=== PATIENT | male | born 1950 | race Two or more races ===

== ENCOUNTER 2016-12-10 13:06 | Emergency (ER) | payer OTHER ==
[~2016-12-10] VITALS: Ht 180.3 cm; Wt 87.1 kg
[2016-12-10] MEDS ORDERED: Norco 5mg/325mg tab ORAL ONE (13:30)
[2016-12-10] MEDS ORDERED: NORCO 5-325 TA1 EAC1 ORAL (14:00)
[2016-12-10] MEDS ORDERED: IBUPROFEN600 MG ORAL (14:00)
--- NOTE | 2016-12-10 14:05 | Diagnostic Imaging Report ---
Indication: Pain Findings: 3 views of the left shoulder were obtained. There is an acromioclavicular separation with slightly high riding clavicle with respect to the acromion and increased CC distance. Findings consistent with a grade 3 a.c. disruption. The glenohumeral joint is normal. There is no evidence of fracture. Impression: A.c. separation acuity indeterminate
[2016-12-10 14:30] VITALS: BP 129/73
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
[2016-12-10 14:33] VITALS: BP 127/66
[2016-12-10] MEDS ORDERED: Hydrogen Peroxide 473ml Bottle TOPIC ONE (14:36)
== END 2016-12-10 14:30 | disposition home or self-care (01) ==
LOC: EMR 13:35
DX: S43.102A Unspecified dislocation of left acromioclavicular joint, initial encounter (principal); V19.3XXA Pedal cyclist (driver) (passenger) injured in unspecified nontraffic accident, initial encounter; Y93.9 Activity, unspecified; Y92.9 Unspecified place or not applicable
CPT/HCPCS: 29240; 99284